=== PATIENT | female | born 1965 | race Caucasian/White ===

== ENCOUNTER 2018-07-09 10:09 | Outpatient (CLI) | payer OTHER, SELFPAY ==
[2018-07-09 12:42] LABS: Abs Immature Grans 0.02 k/cumm (0.0-0.09); Absolute Basophil Count 0.01 k/cumm (0.0-0.2); Absolute Eosinophil Count 0.09 k/cumm (0.0-0.7); Absolute Lymphocyte Count 0.82 k/cumm (1.2-3.4); Absolute Monocyte Count 0.44 k/cumm (0.11-0.7); Absolute Neutrophil Count 5.19 k/cumm (1.2-6.7); Basophils % 0.2; Eosinophils % 1.4; HCT 36.9 % (36.0-46.0); HGB 12.4 g/dL (12.0-15.5); Immature Grans % 0.3; Lymphocytes % 12.5; Mean Corp. HGB Concentration 33.6 g/dL (32.0-36.0); Mean Corpuscular Hemoglobin 30.2 pg (27.0-33.0); Mean Corpuscular Volume 89.8 fL (80-95); Mean Platelet Volume 9.2 fL (8.0-11.0); Monocytes % 6.7; Neutrophils % 78.9; Platelet Count 212 x1000/uL (130-400); RBC 4.11 m/cumm (4.00-5.20); White Blood Cell Count 6.57 k/cumm (4.4-10.8)
[2018-07-09 12:54] LABS: ALT 48 U/L (12-78); AST 33 U/L (15-37); Alkaline Phosphatase 97 U/L (46-116); Anion Gap 7.9 mmol/L (3-11); BUN 15 mg/dL (7-18); Bilirubin, Total 0.4 mg/dL (0.2-1.0); CO2 29.1 mmol/L (21.0-32.0); CREATININE 0.92 mg/dL (0.55-1.02); Calcium 8.9 mg/dL (8.5-10.1); Chloride 105 mmol/L (98-107); Glucose 92 mg/dL (70-100); Potassium 4.1 mmol/L (3.5-5.1); Sodium 142 mmol/L (136-145); Total Protein 7.2 g/dL (6.4-8.2)
== END 2018-07-09 10:29 ==
PROVIDERS: PCP Family Medicine; Visit Provider Internal Medicine
DX: I10 Essential (primary) hypertension (principal); J06.9 Acute upper respiratory infection, unspecified; R50.9 Fever, unspecified
CPT/HCPCS: 36415; 80053; 85025

== ENCOUNTER 2019-08-05 16:38 | Outpatient (REF) | payer OTHER, SELFPAY ==
--- NOTE | 2019-08-05 | PAPFT_PTH ---
PATIENT: Manpreet Mathias LOC: [facility]#:[id number] AGE/SX: 53/F ROOM: RE08/05/[address]: Lilli Ellington MD : [id number] BED: DIS: 08/05/2019 SPEC #: [id number] RECD: 08/08/19 13:12 STATUS: KELLI REArlen #: [id number] BART: 08/05/19 00:[address]: Lilli Ellington DEPT: [facility] Cytology RECD BY: Jessi Hare Tissues: 1 - CX/ENDOCX FOR PAP SMEARS Procedures: PAP THIN PREP/UVM Screening HPV DNA PROBE Comments: [id number]
== END 2019-08-05 16:58 ==
LOC: LBN 16:38
PROVIDERS: PCP Family Medicine; Visit Provider Family Medicine
DX: Z12.4 Encounter for screening for malignant neoplasm of cervix (principal); Z11.51 Encounter for screening for human papillomavirus (HPV)
CPT/HCPCS: 88142; 87624

== ENCOUNTER 2019-08-21 02:33 | Outpatient (CLI) | payer OTHER, SELFPAY ==
--- NOTE | 2019-08-21 16:46 | DI.MAMMO_ITS ---
EXAM: MAMMO SCREENING CLINICAL HISTORY: screening, Z12.39 TECHNIQUE: Mammograms were interpreted according to the usual protocol including computer analysis w [employer] CAD system, tomosynthesis and C-view imaging. COMPARISON: 2009 and 2012 FINDINGS: The breasts are composed of scattered fibroglandular densities, Breast Density category B. No suspicious masses or suspicious microcalcifications are seen. No skin thickening or abnormal axillary lymph nodes are seen. There has been no significant change from prior exams. IMPRESSION: BI-RADS Category 1 - Negative Yearly screening mammography is recommended. Breast Density Category B, scattered fibroglandular densities.
== END 2019-08-21 02:53 ==
PROVIDERS: PCP Family Medicine; Visit Provider Family Medicine
DX: Z12.31 Encounter for screening mammogram for malignant neoplasm of breast (principal)
CPT/HCPCS: 77063; 77067

== ENCOUNTER 2022-01-06 03:08 | Outpatient (CLI) | payer OTHER, SELFPAY ==
[2022-01-06 12:56] LABS: BUN 9 mg/dL (7-18); CREATININE 0.9 mg/dL (0.55-1.02); Calcium 9.2 mg/dL (8.5-10.1); Calculated LDL 90 mg/dL (<100); Chloride 108 mmol/L (98-107); Cholesterol 169 mg/dL (<200); Glucose 77 mg/dL (74-106); HDL Cholesterol 62 mg/dL (40-60); Potassium 3.8 mmol/L (3.5-5.1); Sodium 146 mmol/L (136-145); TSH (W/Ref FT4) 1.82 uIU/mL (0.36-3.74); Triglyceride 86 mg/dL (<150)
== END 2022-01-06 03:09 | disposition home or self-care (01) ==
LOC: LOS 03:08
PROVIDERS: PCP Nurse Practitioner Family; Visit Provider Nurse Practitioner Family
DX: I10 Essential (primary) hypertension (principal)
CPT/HCPCS: 36415; 80048; 80061; 83036; 84443

== ENCOUNTER 2023-05-24 09:18 | Outpatient (CLI) | payer OTHER, SELFPAY ==
[2023-05-24 12:41] LABS: Anion Gap 7.3 mmol/L (3-11); BUN 13 mg/dL (7-18); CO2 30.7 mmol/L (21.0-32.0); Calcium 9.1 mg/dL (8.5-10.1); Chloride 107 mmol/L (98-107); Glucose 97 mg/dL (74-106); Potassium 4.9 mmol/L (3.5-5.1); Sodium 145 mmol/L (136-145)
[2023-05-25 09:36] LABS: Hepatitis C Ab w Rflx HCV PCR Negative (Negative)
== END 2023-05-24 09:19 | disposition home or self-care (01) ==
LOC: LOS 09:18
PROVIDERS: PCP Nurse Practitioner Family; Referring Provider Nurse Practitioner Family; Visit Provider Nurse Practitioner Family
DX: I10 Essential (primary) hypertension (principal); Z11.59 Encounter for screening for other viral diseases; Z00.00 Encounter for general adult medical examination without abnormal findings
CPT/HCPCS: 36415; 80048; 86803

== ENCOUNTER 2023-07-25 20:11 | Emergency (ER) | payer OTHER, SELFPAY ==
[2023-07-25 20:14] VITALS: BP 163/92; PULSE 96; RESP 18; TEMP 36.8; O2SAT 100
--- NOTE | 2023-07-25 20:15 | DI.CT_ITS ---
Exam(s) CT HEAD CERVICAL SPINE WO EXAM: CT HEAD CERVICAL SPINE WO CLINICAL HISTORY: Fall off horse. TECHNIQUE: Imaging Protocol: Axial computed tomography images with coronal and sagittal reformatted images were created and reviewed COMPARISON: No exams were available for comparison FINDINGS: BRAIN: There are no skull fractures. Mucosal thickening is noted in the right frontal sinus. No fluid leve l. There is no evidence of intracranial hemorrhage, mass effect, or shift of midline structures. There are no extra-axial fluid collections. The ventricles are not enlarged or shifted and there is no blo od within the ventricular system nor within the basal cisterns. CERVICAL SPINE: There is no evidence of fracture nor listhesis. No significant prevertebral soft tissue swelling. There is no significant facet joint malalignment. No significant osseous lesions evident. IMPRESSION: No acute intracranial findings on this noninfused CT scan of the brain. No evidence of cervical spine fracture, malalignment, nor acute compromise of the cervical spinal can al. RADIATION DOSE DELIVERED: 1,070.94mGy.cm Total DLP DATA REPOSITORY: All CT scans at this facility are submitted to the National Radiology Data Registry (NRDR) Dose Index Registry (DIR) with the [employer] (ACR). RADIATION OPTIMIZATION: All CT scans at this facility use at least one of these dose optimization te chniques: automated exposure control; mA and/or kV adjustment per patient size (includes targeted exa ms where dose is matched to clinical indication); or iterative reconstruction.
--- NOTE | 2023-07-25 20:26 | ED.GENADUL_ITS ---
Discharge Plan Disposition Patient Disposition: Home Condition: Stable Discharge Details Clinical Impression: Closed head injury with concussion Primary Care Provider: Martha Thorne ED Provider: Judy Acuna Home Meds and New Rx's Prescriptions: Continued albuterol sulfate 90 mcg/actuation HFA aerosol inhaler 2 puff inhalation QID PRN (Reason: shortness of breath or wheezing) Qty: 8.5 3RF Rx Instructions: use with aerochamber diphenhydramine HCl [Benadryl] 25 mg capsule 25 mg PO QHS PRN amlodipine 10 mg tablet 10 mg PO DAILY Qty: 90 3RF losartan 100 mg tablet 100 mg PO DAILY Qty: 90 3RF acetaminophen [Mapap Extra Strength] 500 MG tablet 500 mg Discharge Instructions Instructions: Concussion (ED), Head Injury (ED) Additional Instructions: CT head and neck are within normal limits. Your memory should improve within the next 24 hours. You may have some headaches for a while. Please return to the ER for any worsening headache not relieved by Tylenol or ibuprofen, nausea vomiting, confusion or concerns. Please stay with somebody over the next 12 hours who can observe you. Please take Tylenol or Ibuprofen with food every 4-6 hours as needed for pain and swelling. Follow up with primary care provider in 3-5 days. Return to ED sooner if any worsening or concerns. Stand Alone Forms: Work Release Referrals: Martha Thorne NP [Primary Care Provider] - 3 days HPI General Mode of arrival: ambulatory . Date/Time Provider Initiated Documentation: 07/25/23 20:21 . Limitations to Documentation: no limitations and altered mental status . Information obtained by: patient, family (Friend), RN notes reviewed and old records reviewed . HPI Narrative: 57-year-old female presents to the ER accompanied by her friend after a fall off a horse approximately 2 and half hours prior to arrival. Patient was wearing a helmet. Patient landed on her left side and laid there for a while. She is unsure if she lost consciousness or not. She does have some superficial abrasion noted to her left posterior shoulder. She does have full range of motion noted to her left shoulder. She does not remember the incident at all and has been asking repetitive questions per her friend. She denies headache no C-spine midline C-spine tenderness with palpation. Denies any abdominal pain did take Advil prior to arrival. Did report headache initially but now is pain- free. No obvious focal neurodeficits noted. No hemotympanums. Related Data Home Medications Medication Instructions Recorded Confirmed acetaminophen 500 mg tablet (Mapap 500 mg 08/16/15 05/24/23 Extra Strength) albuterol sulfate 90 mcg/actuation 2 puff inhalation QID PRN 09/16/20 07/25/23 aerosol inhaler shortness of breath or wheezing #8.5 grams amlodipine 10 mg tablet 10 mg PO DAILY #90 tabs 10/26/22 07/25/23 diphenhydramine HCl 25 mg capsule 25 mg PO QHS PRN 10/26/22 07/25/23 (Benadryl) losartan 100 mg tablet 100 mg PO DAILY #90 tabs 03/10/23 05/24/23 Previous Rx's Medication Instructions Recorded albuterol sulfate 90 mcg/actuation 2 puff inhalation QID PRN 09/16/20 aerosol inhaler shortness of breath or wheezing #8.5 grams amlodipine 10 mg tablet 10 mg PO DAILY #90 tabs 10/26/22 losartan 100 mg tablet 100 mg PO DAILY #90 tabs 03/10/23 Allergies Allergy/AdvReac Type Severity Reaction Status Date / Time lisinopril AdvReac Mild Cough Verified 07/25/23 20:31 Cold Temperatures AdvReac Intermediate Hives Uncoded 07/25/23 20:31 General Stated Complaint: Fall/Non TraumaCriteria VIJAY: 3 Review of Systems Constitutional Constitutional: Reports as per HPI Neurologic Neurologic: Reports confusion and Reports memory loss Psychiatric Psychiatric: Reports confusion and Reports memory loss Exam Narrative Exam Narrative: General: Well Developed, Awake and Alert, conversant. Skin: Warm and Dry HEENT: Head: No palpable deformities, Normocephalic Eyes: Pupils PERRLA, EOM's intact. No periorbital eccymosis or step off Ears: Canal patent. Tympanic membranes are clear . No fleming's sign, no hemptympanum. Nose/Face: Atraumatic. Facial bones nontender to palpation and stable with manipulation. Mouth/Throat: No intraoral trauma. Teeth and mandible are intact. Neck: No midline tenderness, no step off, no deformity to palpation of C-spine. Trachea midline. Chest: No surface trauma. Nontender without crepitus or deformity. Lungs clear to ausculatation bilaterally. Heart: RRR, no rubs, murmurs or gallop. Abdomen: No abrasions, ecchymosis, or surface trauma. Nondistended. Nontender to palpation no guarding, rebound, or rigidity. Pelvis: Nontender to palpation and stable to compression. Femoral pulses strong and equal Extremities: Superficial abrasion noted to left shoulder. Sensation intact. Peripheral pulses intact and equal. Full range of motion noted. Neuro: ANO x4, GCS 15, cranial nerves II through XII intact. Motor and sensory exam nonfocal. Reflexes are symmetric. Course Vital Signs Vital signs: Vital Signs Temperature 36.8 C 07/25/23 20:14 Pulse 96 H 07/25/23 20:14 Respiratory Rate 18 07/25/23 20:14 Blood Pressure 163/92 H 07/25/23 20:14 Pulse Oximetry 100 07/25/23 20:14 Temperature 36.8 C 07/25/23 20:14 Temperature Source Temporal Artery Scan 07/25/23 20:14 Pulse 96 H 07/25/23 20:14 Respiratory Rate 18 07/25/23 20:14 Blood Pressure 163/92 H 07/25/23 20:14 Pulse Oximetry 100 07/25/23 20:14 Oxygen Delivery Method Room Air 07/25/23 20:14 Oxygen Flow Rate 0 07/25/23 20:14 Pain Level 0 07/25/23 20:14 Medical Decision Making 57-year-old female presents to the ER accompanied by her friend after a fall off a horse approximately 2 and half hours prior to arrival. Patient was wearing a helmet. Patient landed on her left side and laid there for a while. She is unsure if she lost consciousness or not. She does have some superficial abrasion noted to her left posterior shoulder. She does have full range of motion noted to her left shoulder. She does not remember the incident at all and has been asking repetitive questions per her friend. She denies headache no C-spine midline C-spine tenderness with palpation. Denies any abdominal pain did take Advil prior to arrival. Did report headache initially but now is pain- free. No obvious focal neurodeficits noted. No hemotympanums. CT head and C-spine ordered. I do strongly suspect a concussion however will rule out any intracranial damage like CVA other. Occult fracture. Patient has full range of motion noted to her left shoulder so imaging deferred at this time. CT shows no acute abnormality. Will discharge home with concussion instructions and strict return instructions. Discussed CT results with patient and friend all her questions were answered to the best my ability. Patient discharged alert and oriented hemodynamically stable condition. Am bulatory upon discharge. She continues to ask repetitive questions. This text was generated using [employer] dictation system, please disregard any oddities of phrase or misspellings. Imaging Data Radiologic Study: Imaging: CT Scan Radiologist's impression: Clinical indication: Injury or trauma; Blunt trauma (contusions or hematomas); With loss of consciousness; Not specified; Injury date: 07/25/23; Injury details: Fall off horse TECHNIQUE: Imaging protocol: Computed tomography of the head without contrast. Radiation optimization: All CT scans at this facility use at least one of these dose optimization techniques: automated exposure control; mA and/or kV adjustment per patient size (includes targeted exams where dose is matched to clinical indication); or iterative reconstruction. COMPARISON: No relevant prior studies available. FINDINGS: Brain: Normal. Cerebral ventricles: No ventriculomegaly. Paranasal sinuses: Mild ethmoid and right maxillary sinus disease. Mastoid air cells: Normal as visualized. Bones: Unremarkable. No acute fracture. Soft tissues: Unremarkable. IMPRESSION: No acute intracranial abnormality. PROCEDURE INFORMATION: Exam: CT Cervical Spine Without Contrast Exam date and time: Age: 57 years old Clinical indication: Injury or trauma; Blunt trauma (contusions or hematomas); With loss of consciousness; Not specified; Injury date: 07/25/23; Injury details: Fall off horse TECHNIQUE: Imaging protocol: Computed tomography of the cervical spine without contrast. Radiation optimization: All CT scans at this facility use at least one of these dose optimization techniques: automated exposure control; mA and/or kV adjustment per patient size (includes targeted exams where dose is matched to clinical indication); or iterative reconstruction. COMPARISON: No relevant prior studies available. FINDINGS: Bones: Mild multilevel degenerative disc space narrowing. Minimal multilevel bilateral uncovertebral arthropathy. Left C5-C6 and left C6-C7 neural foraminal narrowing. No acute fracture or malalignment. Lungs: Lung apices are normal. Soft tissues: Normal. IMPRESSION: No acute fracture or malalignment. Thank you for allowing us to participate in the care of your patient. Dictated and Authenticated by: Prasanna Murphy MD Quality:SDOH Health Related Social Needs: No Data to Display [facility] All Active Problems (Updated 07/25/23 @ 21:13 by Judy Acuna NP) Closed head injury with concussion (Acute) Essential hypertension (Chronic) Surgical History No pertinent past surgical history Family History Mother , 82 Atrial fibrillation Stroke Diabetes Father , 87 Hypertension Valvular heart disease Brother No problems noted. Brother Cancer Sister No problems noted. Sister No problems noted. Sister No problems noted. Son , 30 accidental overdose Substance use disorder Maternal Grandfather No problems noted. Maternal Grandmother No problems noted. Paternal Grandfather No problems noted. Paternal Grandmother No problems noted. Social History Smoking/Tobacco Use Status: Never Second Hand Exposure: Yes Smoking risk assessment performed?: Yes Alcohol Intake: current Alcohol Intake frequency: holidays/special occasions only Alcohol type: beer Drug use: Never Substance use type: does not use Caregiver/Support person: Yes Household members: spouse and other Details: grandson Housing: house Communication Needs: None Do you need help understanding health information?: Rarely Pets and animals: Yes Pets and animals: horse(s) Sexually active: Yes Do you think of yourself as: straight/heterosexual Current gender identity: female What is your relationship status?: living with partner How often do you talk on the phone with friends or family?: three or more times per week How often do you get together with friends or relatives?: once per week How often do you attend amish or temple services?: decline to answer Do you belong to any clubs or organized social groups?: yes Panel score (0-1 are the most socially isolated patients): 3 What type of physical activity do you participate in: walking and other Details: barn chores,horse back riding Duration: 15-30 minutes/day Frequency: daily Berna/Episcopal: None Special berna needs: No Seatbelt use: always Helmet use: Yes Helmet use: always Drive intox or ride w/intox coal tram driver: No
[2023-07-25 21:08] VITALS: BP 144/78; PULSE 78; RESP 16; TEMP 36.7; O2SAT 97
--- NOTE | 2023-07-25 21:09 | DI.VRAD_ITS ---
PROCEDURE INFORMATION: Exam: CT Head Without Contrast Exam date and time: 07/25/2023 8:42 PM Age: 57 years old Clinical indication: Injury or trauma; Blunt trauma (contusions or hematomas); With loss of consciousness; Not specified; Injury date: 07/25/23; Injury details: Fall off horse TECHNIQUE: Imaging protocol: Computed tomography of the head without contrast. Radiation optimization: All CT scans at this facility use at least one of these dose optimization techniques: automated exposure control; mA and/or kV adjustment per patient size (includes targeted exams where dose is matched to clinical indication); or iterative reconstruction. COMPARISON: No relevant prior studies available. FINDINGS: Brain: Normal. Cerebral ventricles: No ventriculomegaly. Paranasal sinuses: Mild ethmoid and right maxillary sinus disease. Mastoid air cells: Normal as visualized. Bones: Unremarkable. No acute fracture. Soft tissues: Unremarkable. IMPRESSION: No acute intracranial abnormality. PROCEDURE INFORMATION: Exam: CT Cervical Spine Without Contrast Exam date and time: 07/25/2023 8:42 PM Age: 57 years old Clinical indication: Injury or trauma; Blunt trauma (contusions or hematomas); With loss of consciousness; Not specified; Injury date: 07/25/23; Injury details: Fall off horse TECHNIQUE: Imaging protocol: Computed tomography of the cervical spine without contrast. Radiation optimization: All CT scans at this facility use at least one of these dose optimization techniques: automated exposure control; mA and/or kV adjustment per patient size (includes targeted exams where dose is matched to clinical indication); or iterative reconstruction. COMPARISON: No relevant prior studies available. FINDINGS: Bones: Mild multilevel degenerative disc space narrowing. Minimal multilevel bilateral uncovertebral arthropathy. Left C5-C6 and left C6-C7 neural foraminal narrowing. No acute fracture or malalignment. Lungs: Lung apices are normal. Soft tissues: Normal. IMPRESSION: No acute fracture or malalignment. Dictated and Authenticated by: Prasanna Murphy MD. Ordering:ROWENA Kim MD
[2023-07-25 22:02] VITALS: BP 148/84; PULSE 78; RESP 16; TEMP 36.8; O2SAT 96
== END 2023-07-25 22:02 | disposition home or self-care (01) ==
PROVIDERS: Emergency Provider Registered Nurse Emergency; PCP Nurse Practitioner Family
DX: V80.010A Animal-rider injured by fall from or being thrown from horse in noncollision accident, initial encounter; S06.0XAA Concussion with loss of consciousness status unknown, initial encounter
CPT/HCPCS: 99284; 70450; 72125

== ENCOUNTER 2023-07-30 11:59 | Emergency (ER) | payer OTHER, SELFPAY ==
[2023-07-30] VITALS (31 sets, daily range): BP systolic 103–134; BP diastolic 59–82; PULSE 67–81; RESP 16–18; TEMP 36.2–36.5; O2SAT 83–99
--- NOTE | 2023-07-30 12:15 | DI.CT_ITS ---
Exam(s) CT CERVICAL SPINE WO EXAM: CT CERVICAL SPINE WO CLINICAL HISTORY: trauma, thrown off horse, back pain. TECHNIQUE: Imaging Protocol: Axial computed tomography images with coronal and sagittal reformatted images were created and reviewed CONTRAST MATERIAL: Noncontrast COMPARISON: CT CT HEAD CERVICAL SPINE WO from 07/25/2023 FINDINGS: Bones: No fracture or dislocations are seen. The alignment of the cervical spine is normal including the cervicovertebral junction and cervicothoracic junction. Mild degenerate disc changes. Degenera tive changes at C1-2. No cyst central canal stenosis or visible bony neural foraminal narrowing. Soft Tissues: The soft tissues of the neck are unremarkable. No large disk herniations are identified . The visualized portions of the lung apices are clear. No pneumothorax is seen. IMPRESSION: Mild degenerative changes. No acute abnormality. RADIATION DOSE DELIVERED: Total DLP DATA REPOSITORY: All CT scans at this facility are submitted to the National Radiology Data Registry (NRDR) Dose Index Registry (DIR) with the [employer] (ACR). RADIATION OPTIMIZATION: All CT scans at this facility use at least one of these dose optimization te chniques: automated exposure control; mA and/or kV adjustment per patient size (includes targeted exa ms where dose is matched to clinical indication); or iterative reconstruction.
--- NOTE | 2023-07-30 12:18 | DI.CT_ITS ---
Exam(s) CT CHEST/ABD/PEL W CT THORACIC LUMBAR SPINE REC EXAM: CT CHEST/ABD/PEL W CLINICAL HISTORY: trauma, thrown off horse, back pain. TECHNIQUE: Imaging Protocol: Axial computed tomography images with coronal and sagittal reformatted images were created and reviewed. Axial, coronal and sagittal images of the thoracic and lumbar spine were reconstructed from the chest abdomen pelvic CT. CONTRAST MATERIAL: Intravenous: Omnipaque 350 Contrast volume:100 ml Oral: no COMPARISON: CT CT THORACIC LUMBAR SPINE REC from 07/30/2023 FINDINGS: CHEST/thoracic spine: Tracheobronchial tree: Patent. Pulmonary parenchyma: No consolidation or dominant measurable mass. Pleura: No effusion or pneumothorax. Lymph nodes: Within normal limits. Aorta: Thoracic portion non-dilated. Heart: No pericardial effusion. Heart size normal. Bones: Unremarkable for age. Loss of disc height and endplate osteophytes in the mid thoracic region causing some kyphosis. No lytic or blastic lesions.No compression fractures. No rib fractures. Soft tissues: Unremarkable. ABDOMEN and PELVIS/lumbar spine: Liver: Normal density. No measurable mass. Gallbladder and biliary tract: No evidence of stones or wall thickening. No biliary dilatation. Pancreas: Normal density, no abnormal calcifications or inflammatory process. Spleen: Normal. Kidneys: Normal size, contour and axis. No radiodense stones. No obstructive uropathy. No suspicious masses seen. Adrenal glands: No masses seen. Aorta: Abdominal portion non-dilated. Lymph nodes: Within normal limits. Soft tissues: Unremarkable. Bladder: Unremarkable. Bowel: No obstruction or bowel wall thickening. Peritoneal cavity: No ascites. No focal collection. No mesenteric inflammatory response. Bones: Vertically oriented nondisplaced fracture extending through the left side of the sacrum. The hips are unremarkable. The SI joints and pubic symphysis are not widened. No proximal femoral fract ures. No lumbar spine fractures. Reproductive organs: Within normal limits. IMPRESSION: No acute abnormality in the chest. Nondisplaced vertically oriented fracture through the left side of the sacrum. No additional fractur es. No acute intra abdominal or pelvic injury. RADIATION DOSE DELIVERED: Total DLP DATA REPOSITORY: All CT scans at this facility are submitted to the National Radiology Data Registry (NRDR) Dose Index Registry (DIR) with the [employer] (ACR). RADIATION OPTIMIZATION: All CT scans at this facility use at least one of these dose optimization te chniques: automated exposure control; mA and/or kV adjustment per patient size (includes targeted exa ms where dose is matched to clinical indication); or iterative reconstruction.
[2023-07-30] MEDS: Lactated Ringers 1,000 ML 100 ML IV (12:40)
[2023-07-30 12:58] LABS: Abs Immature Grans 0.11 10^3/uL (0.0-0.06); Absolute Basophil Count 0.02 10^3/uL (0.0-0.2); Absolute Eosinophil Count 0.02 10^3/uL (0.0-0.7); Absolute Lymphocyte Count 0.72 10^3/uL (1.2-3.4); Absolute Monocyte Count 0.43 10^3/uL (0.1-0.8); Basophils % 0.3 %; Eosinophils % 0.3 %; HGB 12.7 g/dL (11.2-15.7); Immature Grans % 1.4 %; Lymphocytes % 9.1 %; MCH 30.8 pg (27.0-33.0); MCHC 33.4 % (32.0-36.0); MCV 92 fL (80-95); MPV 9.2 fL (8.0-11.0); Monocytes % 5.4 %; Neutrophils % 83.5 %; Platelet Count 210 10^3/uL (130-400); RBC 4.13 10^6/uL (3.93-5.22); RDW 12.3 % (11.7-14.6); RDW-SD 41.2 fL
[2023-07-30 13:07] LABS: ALT 42 U/L (14-59); AST 41 U/L (15-37); Albumin 4.4 g/dL (3.4-5.0); Alkaline Phosphatase 112 U/L (46-116); Anion Gap 10.3 mmol/L (3-11); BUN 11 mg/dL (7-18); Bilirubin, Total 0.9 mg/dL (0.2-1.0); CO2 27.7 mmol/L (21.0-32.0); CREATININE 1.1 mg/dL (0.55-1.02); Chloride 105 mmol/L (98-107); Estimated GFR 57.88 (mL/min/1.73m2); Glucose 102 mg/dL (74-106); Potassium 3.7 mmol/L (3.5-5.1); Sodium 143 mmol/L (136-145); Total Protein 7.6 g/dL (6.4-8.2)
[2023-07-30] MEDS: Normal Saline Flush 10 ML SYR IVP (13:08)
[2023-07-30] MEDS: Normal Saline - Diluent 50 ML VIAL IJ (13:09)
[2023-07-30] MEDS: Omnipaque 350 MG/ML 100 ML BTL IJ (13:09)
--- NOTE | 2023-07-30 13:36 | DI.VRAD_ITS ---
PROCEDURE INFORMATION: Exam: CT Cervical Spine Without Contrast Exam date and time: 07/30/2023 1:13 PM Age: 57 years old Clinical indication: Injury or trauma; Fall; Blunt trauma TECHNIQUE: Imaging protocol: Computed tomography of the cervical spine without contrast. COMPARISON: CT HEAD CERVICAL SPINE WO 07/25/2023 8:42 PM FINDINGS: Bones: Mild degenerative at the anterior C1-C2 articulation. Tiny ossific fragment at the anterior C4-C5 and C6-C7 disc spaces, representing bone detached osteophytes. No acute fracture or dislocation. No spondylolisthesis. No compression deformity. Lungs: Lung apices are normal. Thyroid: There is a 7 mm right hypodense thyroid nodule. Soft tissues: Unremarkable. IMPRESSION: No posttraumatic changes in the cervical spine. Dictated and Authenticated by: Riccardo Dodd MD. Ordering:TOBI Jin MD
--- NOTE | 2023-07-30 13:44 | DI.VRAD_ITS ---
Addendum created by Riccardo Dodd MD on 07/30/2023 2:10:07 PM EDT: Vertical left sacral fracture, not involving the sacral foramina. Nondisplaced fracture of the posterior aspect of the left posterior iliac spine. These fractures are better described on the CT of the lumbar spine. Initial report created on 07/30/2023 1:44:00 PM EDT: PROCEDURE INFORMATION: Exam: CT Chest With Contrast; Diagnostic Exam date and time: 07/30/2023 1:17 PM Age: 57 years old Clinical indication: Injury or trauma; Other: Trauma, thrown off horse, back pain; Generalized; Blunt trauma (contusions or hematomas) TECHNIQUE: Imaging protocol: Diagnostic computed tomography of the chest with contrast. Contrast material: OMNIPAQUE 350; Contrast volume: 100 ml; Contrast route: INTRAVENOUS (IV); COMPARISON: CT THORACIC LUMBAR SPINE REC 07/30/2023 1:17 PM FINDINGS: Lungs: Atelectatic changes in both lung bases. No acute infiltrates. Pleural spaces: Unremarkable. No pneumothorax. No pleural effusion. Heart: Unremarkable. No cardiomegaly. No pericardial effusion. Lymph nodes: Unremarkable. No enlarged lymph nodes. Vasculature: Unremarkable. No aortic aneurysm. Bones/joints: Mild multilevel anterior osteophytes of the thoracic spine. No acute fracture or dislocation. Soft tissues: Mild subcutaneous fat stranding in the upper back, representing contusion. IMPRESSION: No intrathoracic posttraumatic changes. PROCEDURE INFORMATION: Exam: CT Abdomen And Pelvis With Contrast Exam date and time: 07/30/2023 1:17 PM Age: 57 years old Clinical indication: Injury or trauma; Other: Trauma, thrown off horse, back pain; Generalized; Blunt trauma (contusions or hematomas) TECHNIQUE: Imaging protocol: Computed tomography of the abdomen and pelvis with contrast. Contrast material: OMNIPAQUE 350; Contrast volume: 100 ml; Contrast route: INTRAVENOUS (IV); COMPARISON: CT THORACIC LUMBAR SPINE REC 07/30/2023 1:17 PM FINDINGS: Liver: There are hypodense liver lesions measuring 6 mm in segment 4 and 1.1 cm in segment 7, too small characterize. Gallbladder and bile ducts: Normal. No calcified stones. No ductal dilation. Pancreas: Normal. No ductal dilation. Spleen: Normal. No splenomegaly. Adrenal glands: Normal. No mass. Kidneys and ureters: Normal. No hydronephrosis. Stomach and bowel: Unremarkable. No obstruction. No mucosal thickening. Appendix: No evidence of appendicitis. Intraperitoneal space: Unremarkable. No free air. No significant fluid collection. Vasculature: Unremarkable. No abdominal aortic aneurysm. Lymph nodes: Unremarkable. No enlarged lymph nodes. Urinary bladder: Unremarkable as visualized. Reproductive: Unremarkable as visualized. Bones/joints: Mild degenerative disease bilateral sacroiliac joints and bilateral hip joints. No acute fracture or dislocation. Soft tissues: Small fat containing umbilical hernia. There is fat stranding in the right gluteal region superficial to the right gluteus muscles, consistent with contusion. IMPRESSION: No intra-abdominal posttraumatic changes. Dictated and Authenticated by: Riccardo Dodd MD. Ordering:TOBI Jin MD
--- NOTE | 2023-07-30 14:09 | DI.VRAD_ITS ---
Addendum created by Riccardo Dodd MD on 07/30/2023 2:23:35 PM EDT: THIS REPORT CONTAINS FINDINGS THAT MAY BE CRITICAL TO PATIENT CARE. The findings were verbally communicated via telephone conference with Davin Payton at 2:23 PM EDT on 07/30/2023. The findings were acknowledged and understood. Initial report created on 07/30/2023 2:09:32 PM EDT: PROCEDURE INFORMATION: Exam: CT Thoracic Spine Without Contrast Exam date and time: 07/30/2023 1:17 PM Age: 57 years old Clinical indication: Injury or trauma; Fall; Blunt trauma (contusions or hematomas) TECHNIQUE: Imaging protocol: Computed tomography of the thoracic spine without contrast. COMPARISON: CT CHEST/ABD/PEL W 07/30/2023 1:17 PM FINDINGS: Bones/joints: Multilevel anterior osteophytes of the thoracic spine. No compression deformity. No spondylolisthesis. Increased kyphosis of the midthoracic spine. No acute fracture or dislocation. Soft tissues: Unremarkable. IMPRESSION: No posttraumatic changes in the thoracic spine. PROCEDURE INFORMATION: Exam: CT Lumbar Spine Without Contrast Exam date and time: 07/30/2023 1:17 PM Age: 57 years old Clinical indication: Injury or trauma; Fall; Blunt trauma (contusions or hematomas) TECHNIQUE: Imaging protocol: Computed tomography of the lumbar spine without contrast. COMPARISON: CT CHEST/ABD/PEL W 07/30/2023 1:17 PM FINDINGS: Bones/joints: There is a vertical left sacral fracture. Mild curvature of the lumbar spine convex to the left. Nondisplaced transverse fracture of the posterior left iliac spine. No spondylolisthesis. No compression deformity of the vertebral bodies. Soft tissues: Unremarkable. IMPRESSION: Vertical left sacral fracture, not involving the sacral foramina. Nondisplaced fracture of the posterior aspect of the left posterior iliac spine. Dictated and Authenticated by: Riccardo Dodd MD. Ordering:TOBI Jin MD
--- NOTE | 2023-07-30 14:09 | W.ED.GENAD ---
Discharge Plan Disposition Patient Disposition: Transfer-Acute Inpatient Care Specific Acute Inpt Facility: [facility] Condition: Serious Discharge Details Clinical Impression: Closed pelvic fracture, Closed sacral fracture, Animal-rider injured by fall from or being thrown from horse in noncollision accident, initial encounter Primary Care Provider: Martha Thorne ED Provider: Davin Payton Home Meds and New Rx's Prescriptions: No Action albuterol sulfate 90 mcg/actuation HFA aerosol inhaler 2 puff inhalation QID PRN (Reason: shortness of breath or wheezing) Qty: 8.5 3RF Rx Instructions: use with aerochamber diphenhydramine HCl [Benadryl] 25 mg capsule 25 mg PO QHS PRN amlodipine 10 mg tablet 10 mg PO DAILY Qty: 90 3RF losartan 100 mg tablet 100 mg PO DAILY Qty: 90 3RF acetaminophen [Mapap Extra Strength] 500 MG tablet 1,000 mg PO Q6H PRN HPI General Mode of arrival: EMS. Date/Time Provider Initiated Documentation: 07/30/23 12:18. Limitations to Documentation: no limitations. Information obtained by: patient. HPI Narrative: 57-year-old female presents with chief complaint of back pain after being thrown off horse just prior to arrival. Pain is moderate and worse on palpation of her back. Patient states she did not hit her head or lose consciousness during the fall. She has no pain in her chest or abdomen. She has no headache. No neck pain. Related Data Home Medications Medication Instructions Recorded Confirmed acetaminophen 500 mg tablet (Mapap 1,000 mg PO Q6H PRN 08/16/15 07/30/23 Extra Strength) albuterol sulfate 90 mcg/actuation 2 puff inhalation QID PRN 09/16/20 07/30/23 aerosol inhaler shortness of breath or wheezing #8.5 grams amlodipine 10 mg tablet 10 mg PO DAILY #90 tabs 10/26/22 07/30/23 diphenhydramine HCl 25 mg capsule 25 mg PO QHS PRN 10/26/22 07/30/23 (Benadryl) losartan 100 mg tablet 100 mg PO DAILY #90 tabs 03/10/23 07/30/23 Previous Rx's Medication Instructions Recorded albuterol sulfate 90 mcg/actuation 2 puff inhalation QID PRN 09/16/20 aerosol inhaler shortness of breath or wheezing #8.5 grams amlodipine 10 mg tablet 10 mg PO DAILY #90 tabs 10/26/22 losartan 100 mg tablet 100 mg PO DAILY #90 tabs 03/10/23 Allergies Allergy/AdvReac Type Severity Reaction Status Date / Time lisinopril AdvReac Mild Cough Verified 07/30/23 12:14 Cold Temperatures AdvReac Intermediate Hives Uncoded 07/30/23 12:14 General Stated Complaint: Trauma VIJAY: 3 Review of Systems All systems reviewed & are unremarkable except as noted in HPI and below Cardiovascular Cardiovascular: Denies chest pain and Denies dyspnea Respiratory Respiratory: Denies dyspnea Musculoskeletal Musculoskeletal: Reports as per HPI Exam Const General: cooperative HENMT Head: normocephalic and atraumatic Mouth: moist mucous membranes Eyes Conjunctivae: normal conjunctivae Sclera: normal sclerae EOM: EOM intact bilaterally Neck Neck: trachea midline and supple Resp Auscultation: clear to auscultation bilaterally, no rales, no rhonchi and no wheezes Cardio Rate: regular rate and not tachycardic Rhythm: regular rhythm GI Palpation: soft, not firm, no guarding, no masses, not rigid and nontender Back/Spine/Pelvis Cervical Spine: collar present, No cervical spinal tenderness and No step off deformity Thoracic/Lumbar Spine: paraspinal tenderness (left lumbar sacral) and lumbar spinal tenderness Sacroiliac joints: on the right tender to palpation Skin General skin exam: no rashes or lesions noted Neuro General: patient alert, patient awake, patient oriented x3 and tone normal Cognition: normal cognition Speech: speech normal Motor: strength 5/5 throughout Sensory Exam: no sensory deficits noted Extrem General: no edema Psych Appearance: grossly normal Mental Status: mental status grossly normal Speech and Movement: speech and movement normal Course Vital Signs Vital signs: Vital Signs Temperature 36.5 C 07/30/23 12:03 Pulse 76 07/30/23 12:03 Respiratory Rate 16 07/30/23 12:03 Blood Pressure 121/74 07/30/23 12:03 Pulse Oximetry 96 07/30/23 12:03 Temperature 36.5 C 07/30/23 12:03 Temperature Source Skin 07/30/23 12:03 Pulse 76 07/30/23 12:03 Respiratory Rate 16 07/30/23 12:03 Respiratory Effort Normal 07/30/23 12:19 Respiratory Depth Normal 07/30/23 12:15 Respiratory Pattern Normal 07/30/23 12:15 Blood Pressure 121/74 07/30/23 12:03 Blood Pressure Position Supine 07/30/23 12:03 Pulse Oximetry 96 07/30/23 12:03 Oxygen Delivery Method Nasal Cannula 07/30/23 12:03 Oxygen Flow Rate 1.5 07/30/23 12:03 Pain Level 8 07/30/23 12:03 Comment 88% RA 07/30/23 12:03 Lab/Test Results Lab/Test Results: Laboratory Tests Range/Units 07/30/23 12:40 WBC (4.4-10.8) 10^3/uL 7.90 RBC (3.93-5.22) 10^6/uL 4.13 Hgb (11.2-15.7) g/dL 12.7 Hct (36.0-46.0) % 38.0 MCV (80-95) fL 92 MCH (27.0-33.0) pg 30.8 MCHC (32.0-36.0) % 33.4 RDW (11.7-14.6) % 12.3 Plt Count (130-400) 10^3/uL 210 MPV (8.0-11.0) fL 9.2 Immature Gran % % 1.4 Neutrophils % % 83.5 Lymphocytes % % 9.1 Monocytes % % 5.4 Eosinophils % % 0.3 Basophils % % 0.3 Nucleated RBC % (0.0-0.3) % 0.0 Absolute Neutrophils (1.2-6.7) 10^3/uL 6.60 Absolute Lymphocytes (1.2-3.4) 10^3/uL 0.72 L Absolute Monocytes (0.1-0.8) 10^3/uL 0.43 Absolute Eosinophils (0.0-0.7) 10^3/uL 0.02 Absolute Basophils (0.0-0.2) 10^3/uL 0.02 Sodium (136-145) mmol/L 143 Potassium (3.5-5.1) mmol/L 3.7 Chloride (98-107) mmol/L 105 Carbon Dioxide (21.0-32.0) mmol/L 27.7 Anion Gap (3-11) mmol/L 10.3 BUN (7-18) mg/dL 11 Creatinine (0.55-1.02) mg/dL 1.1 H Est GFR (CKD-EPI 2020) (mL/min/1.73m2) 57.88 Glucose (74-106) mg/dL 102 Calcium (8.5-10.1) mg/dL 9.0 Total Bilirubin (0.2-1.0) mg/dL 0.9 AST (15-37) U/L 41 H ALT (14-59) U/L 42 Alkaline Phosphatase (46-116) U/L 112 Total Protein (6.4-8.2) g/dL 7.6 Albumin (3.4-5.0) g/dL 4.4 ABO/Rh B Negative Antibody Screen NEGATIVE Medical Decision Making 57-year-old female presents after being thrown from a horse with pain in her low back, tender in her lumbar spine and sacroiliac area on the left. Patient is saturating well in no respiratory distress. She is clear breath sounds bilaterally. Hemodynamically stable. Neuro intact. Patient is mentating well. She did not hit her head and has no headache. No loss of consciousness. CT of the neck, thoracic spine, lumbar spine, chest abdomen pelvis were obtained to assess for acute traumatic injury. Patient offered analgesic and declined CT of the cervical spine was interpreted by radiology: No posttraumatic changes in the cervical spine. CT of the thoracic and lumbar spine interpreted by radiology: No posttraumatic changes of the thoracic spine. Vertical left sacral fracture, not involving the sacral foramen. Nondisplaced fracture of the posterior aspect of the left posterior iliac spine. Mild curvature of the lumbar spine convex to the left. CT of the chest interpreted by radiology:No intrathoracic posttraumatic changes. CT of the abdomen pelvis interpreted by radiology: Vertical left sacral fracture, not involving the sacral foramen a. Nondisplaced fracture of the posterior aspect of the left posterior iliac spine. 225p --called [facility] transfer center discussed with trauma team. Patient agreeable to analgesic and given Dilaudid IV. -- I spoke with Dr. Evans at [facility] trauma, discussed ED presentation and course including diagnostics, she will except the patient in transfer. Lab Data Lab results reviewed: Yes I reviewed the patient's lab results. Labs: Laboratory Tests Range/Units 07/30/23 12:40 WBC (4.4-10.8) 10^3/uL 7.90 RBC (3.93-5.22) 10^6/uL 4.13 Hgb (11.2-15.7) g/dL 12.7 Hct (36.0-46.0) % 38.0 MCV (80-95) fL 92 MCH (27.0-33.0) pg 30.8 MCHC (32.0-36.0) % 33.4 RDW (11.7-14.6) % 12.3 Plt Count (130-400) 10^3/uL 210 MPV (8.0-11.0) fL 9.2 Immature Gran % % 1.4 Neutrophils % % 83.5 Lymphocytes % % 9.1 Monocytes % % 5.4 Eosinophils % % 0.3 Basophils % % 0.3 Nucleated RBC % (0.0-0.3) % 0.0 Absolute Neutrophils (1.2-6.7) 10^3/uL 6.60 Absolute Lymphocytes (1.2-3.4) 10^3/uL 0.72 L Absolute Monocytes (0.1-0.8) 10^3/uL 0.43 Absolute Eosinophils (0.0-0.7) 10^3/uL 0.02 Absolute Basophils (0.0-0.2) 10^3/uL 0.02 Sodium (136-145) mmol/L 143 Potassium (3.5-5.1) mmol/L 3.7 Chloride (98-107) mmol/L 105 Carbon Dioxide (21.0-32.0) mmol/L 27.7 Anion Gap (3-11) mmol/L 10.3 BUN (7-18) mg/dL 11 Creatinine (0.55-1.02) mg/dL 1.1 H Est GFR (CKD-EPI 2020) (mL/min/1.73m2) 57.88 Glucose (74-106) mg/dL 102 Calcium (8.5-10.1) mg/dL 9.0 Total Bilirubin (0.2-1.0) mg/dL 0.9 AST (15-37) U/L 41 H ALT (14-59) U/L 42 Alkaline Phosphatase (46-116) U/L 112 Total Protein (6.4-8.2) g/dL 7.6 Albumin (3.4-5.0) g/dL 4.4 ABO/Rh B Negative Antibody Screen NEGATIVE Quality:SDOH Health Related Social Needs: No Data to Display PFSH All Active Problems (Updated 07/30/23 @ 14:32 by Davin Payton MD) Animal-rider injured by fall from or being thrown from horse in noncollision accident, initial encounter (Acute) Closed sacral fracture (Acute) Closed pelvic fracture (Acute) Closed head injury with concussion (Acute) Essential hypertension (Chronic) Surgical History No pertinent past surgical history Family History Mother , 82 Atrial fibrillation Stroke Diabetes Father , 87 Hypertension Valvular heart disease Brother No problems noted. Brother Cancer Sister No problems noted. Sister No problems noted. Sister No problems noted. Son , 30 accidental overdose Substance use disorder Maternal Grandfather No problems noted. Maternal Grandmother No problems noted. Paternal Grandfather No problems noted. Paternal Grandmother No problems noted. Social History Smoking/Tobacco Use Status: Never Second Hand Exposure: Yes Smoking risk assessment performed?: Yes Alcohol Intake: current Alcohol Intake frequency: holidays/special occasions only Alcohol type: beer Drug use: Never Substance use type: does not use Caregiver/Support person: Yes Household members: spouse and other Details: grandson Housing: house Communication Needs: None Do you need help understanding health information?: Rarely Pets and animals: Yes Pets and animals: horse(s) Sexually active: Yes Do you think of yourself as: straight/heterosexual Current gender identity: female What is your relationship status?: living with partner How often do you talk on the phone with friends or family?: three or more times per week How often do you get together with friends or relatives?: once per week How often do you attend orthodoxy or sikhism services?: decline to answer Do you belong to any clubs or organized social groups?: yes Panel score (0-1 are the most socially isolated patients): 3 What type of physical activity do you participate in: walking and other Details: barn chores,horse back riding Duration: 15-30 minutes/day Frequency: daily Berna/Christian: None Special berna needs: No Seatbelt use: always Helmet use: Yes Helmet use: always Drive intox or ride w/intox meals on wheels driver: No
[2023-07-30] MEDS: HYDROmorphone 2 MG/ML SYR 0.5 MG IVP (14:56)
[2023-07-30] MEDS: HYDROmorphone 2 MG/ML SYR 1 MG IVP (16:50)
== END 2023-07-30 16:51 | disposition short-term general hospital (02) ==
PROVIDERS: Emergency Provider Student in an Organized Health Care Education/Training Program; PCP Nurse Practitioner Family
DX: S32.110A Nondisplaced Zone I fracture of sacrum, initial encounter for closed fracture (principal); M54.50 Low back pain, unspecified; W17.89XA Other fall from one level to another, initial encounter; V80.010A Animal-rider injured by fall from or being thrown from horse in noncollision accident, initial encounter
CPT/HCPCS: 36415; 74177; 80053; 86850; 86900; 86901; 96361; 96374; 96376; 99285; 71260; 72125; 85025; J1170; J3490

== ENCOUNTER 2024-07-25 02:11 | Outpatient (CLI) | payer OTHER, SELFPAY ==
--- NOTE | 2024-07-25 07:15 | DI.US_ITS ---
Exam(s) US PELVIS TRANSVAGINAL EXAM: US PELVIS TRANSVAGINAL CLINICAL HISTORY: f/u septated ovarian cyst,LT, N83.202 TECHNIQUE: Transabdominal and transvaginal imaging was performed using standard protocol. COMPARISON: US US PELVIS TRANSVAGINAL from 10/23/2023 FINDINGS: UTERUS: Anteverted. 5.8 x 3.0 x 5.4 cm Endometrium: 1 mm Myometrium: Posterior left-sided fibroid measuring 3.7 x 2.8 x 2.9 cm. Cervix: Trace amount of fluid in the canal. OVARIES: Right: Cyst or mass: 1.7 centimeter maximum dimension simple cyst. Left: Cyst or mass: 2.2 centimeter maximum dimension cyst with a single fine septation. Decreased si ze from prior exam. DOPPLER: Color: Symmetric and uniform flow to both ovaries. No hyperemia. CUL-DE-SAC: Free fluid: None. IMPRESSION: 1. Stable uterine fibroid.. 2. Decreased size of left ovarian cyst with single thin septation. DATA REPOSITORY:
--- NOTE | 2024-07-25 07:15 | DI.MAMMO_ITS ---
Exam(s) MAMMO SCREENING EXAM: MAMMO SCREENING CLINICAL HISTORY: screening,Z12.39 TECHNIQUE: Mammograms were interpreted according to the usual protocol including computer analysis w [employer] CAD system, tomosynthesis and C-view imaging. COMPARISON: 2020 FINDINGS: The breasts are composed of scattered fibroglandular densities, Breast Density category B. No suspicious masses or suspicious microcalcifications are seen. No skin thickening or abnormal axillary lymph nodes are seen. There has been no significant change from prior exams. IMPRESSION: BI-RADS Category 1, Negative mammogram Yearly screening mammography is recommended. Breast Density - Category B, scattered fibroglandular densities. Breast density Category C or D implies that the patient has dense breast tissue. Dense breast tissue can make it harder to find cancer on a mammogram. Dense breast tissue is also associated with an incr eased risk of breast cancer. This information about the result of the mammogram report was provided to the patient to raise their awareness. Use this report when you speak with the patient about their risks for breast cancer, which includes their family history. At that time, you may recommend additional screening tests (Ultrasoun d or MRI) as these tests may add significant information. A negative radiographic report should not delay biopsy if a dominant or clinically suspicious mass is present. Up to ten percent of cancers are not identified on mammography. A negative report may reinforce clinical impression. Adenosis and dense breasts may obscure an underlying neoplasm. False positive reports average 6 to 10%. Patient will receive a letter notifying them of these results.
== END 2024-07-25 02:31 ==
LOC: DI 02:11
PROVIDERS: PCP Nurse Practitioner Family; Visit Provider Nurse Practitioner Family
DX: Z12.31 Encounter for screening mammogram for malignant neoplasm of breast (principal); N83.202 Unspecified ovarian cyst, left side
CPT/HCPCS: 77063; 77067; 76830; 76856

== ENCOUNTER 2025-02-13 08:50 | Outpatient (CLI) | payer OTHER, SELFPAY ==
[2025-02-13 14:35] LABS: Abs Immature Grans 0.00 10^3/uL (0.0-0.06); HCT 36.8 % (36.0-46.0); HGB 12.4 g/dL (11.2-15.7); Immature Grans % 0.0 %; MCH 31.5 pg (27.0-33.0); MCHC 33.7 % (32.0-36.0); MCV 93 fL (80-95); MPV 9.6 fL (8.0-11.0); Platelet Count 234 10^3/uL (130-400); RBC 3.94 10^6/uL (3.93-5.22); RDW 12.2 % (11.7-14.6); RDW-SD 42.0 fL; WBC 4.35 10^3/uL (4.4-10.8)
[2025-02-13 14:48] LABS: Hemoglobin A1C 5.0 % (<5.7)
[2025-02-13 14:58] LABS: ALT 16 U/L (10-49); AST 23 U/L (<34); Albumin 4.5 g/dL (3.2-5.0); Alkaline Phosphatase 85 U/L (46-116); Anion Gap 7.8 mmol/L (3-11); BUN 15 mg/dL (9-23); Bilirubin, Total 0.7 mg/dL (0.2-1.2); CO2 28.2 mmol/L (20.0-31.0); Calcium 9.3 mg/dL (8.3-10.6); Chloride 109 mmol/L (98-107); Cholesterol 191 mg/dL (<200); Glucose 91 mg/dL (74-106); HDL Cholesterol 52 mg/dL (>40); Potassium 4.2 mmol/L (3.5-5.1); Sodium 145 mmol/L (136-145); Total Protein 7.3 g/dL (5.7-8.2)
[2025-02-14 09:45] LABS: HBs Antibody, Quant <3.1 mIU/mL (See Note); Hepatitis B Surface Antigen Negative (Negative)
[2025-02-14 09:54] LABS: HIV-1/2 Ag & Ab Screen Negative (Negative)
== END 2025-02-13 08:51 | disposition home or self-care (01) ==
PROVIDERS: PCP Nurse Practitioner Family; Visit Provider Nurse Practitioner Family
DX: Z00.00 Encounter for general adult medical examination without abnormal findings (principal); Z11.59 Encounter for screening for other viral diseases; Z11.4 Encounter for screening for human immunodeficiency virus [HIV]
CPT/HCPCS: 36415; 80053; 80061; 86704; 86706; 87340; 87389; 83036; 85025

== ENCOUNTER 2025-02-13 18:08 | Outpatient (REF) | payer OTHER, SELFPAY ==
--- NOTE | 2025-02-13 09:00 | PAPFT_PTH ---
PATIENT: Manpreet Mathias LOC: ESAU #:[id number] AGE/SX: 59/F ROOM: RE02/13/[address]: FRED Gilbert : 1965 BED: DIS: 02/13/2025 SPEC #: [id number] RECD: 02/13/25 18:20 STATUS: KELLI REQ #: [id number] BART: 02/13/25 09:[address]: Martha Thorne DEPT: [facility] Cytology RECD BY: Jessi Hare Tissues: 1 - CX/ENDOCX FOR PAP SMEARS Procedures: PAP THIN PREP/UVM Screening HPV DNA PROBE Comments: [id number] (HPV 16 & 18/45)
== END 2025-02-13 18:09 | disposition home or self-care (01) ==
LOC: LBN 18:08
PROVIDERS: PCP Nurse Practitioner Family; Visit Provider Nurse Practitioner Family
DX: Z11.51 Encounter for screening for human papillomavirus (HPV) (principal); Z01.419 Encounter for gynecological examination (general) (routine) without abnormal findings
CPT/HCPCS: 88142; 87624